=== PATIENT | female | born 1975 | race Caucasian/White ===

== ENCOUNTER 2018-09-20 15:47 | Observation (INO) ==
[2018-09-20] MEDS ORDERED: Naloxone 0.4 MG/ML INJ IVP PRN (17:39)
[2018-09-20] MEDS ORDERED: Ondansetron 4 MG/2 ML VIAL IVP PRN (17:39)
--- NOTE | 2018-09-20 18:01 | Internal Med History&Physical ---
Date of Encounter: 09/20/18 Time of Encounter: 17:40 Internal Medicine - H&P: HPI Chief complaint: Symptomatica bradycardia Admitted From: Hospital to Hospital Transfer History of present illness: Ms. Pearce is a 42 year old female with no significant past medical history was transferred from [facility] ED due to the concern of symptomatic bradycardia. Patient reports that she was on her way to [place] to pay her bills and was in a car with her friend being a logging truck driver. She then had a sudden onset of blurring of vision and nausea to the point where he had to pulling machine operator to a gas station and let her vomit. She did not really vomit anything but subsequently lost consciousness. No fall or head injury. Her friend shook her to wake her up and she regained consciousness after 5-10 secs. However, she appeared to be confused and was brought to the ED subsequently. She was also noted to be flushed and profoundly diaphoretic. It is reported that it took about 30-45mins before she became herself again. No tongue biting, up rolling of the eyes, or loss of bowel/bladder function noted. She does not recall any episodes after the vomiting and currently denies any chest pain, shortness of breath, cough, sputum production, fever/chills, abdominal pain, diarrhea, or dysuria. At the outside hospital ED, she was afebrile and was noted to have heart rate of 40s. BP Stable. 1 dose of atropine was given which brought her heart rate back upto 60s. Workup was largely unremarkable with normal hemoglobin, white blood cell count, troponin, and BMP. EKG showed sinus bradycardia without STT changes concerning for ischemia. CT head was negative for acute intracranial abnormality. Urine tox screen was only positive for cannabinoids. She was given IV fluid and transferred to [facility] with cardiology consultation. Past Med Surg Social Fam HX - Past Medical History Attestation: Yes The following information was validated with the patient. Medical history: no medical history Additional medical history: back pain, current smoker Psychiatric history: no psych history - Past Surgical History Surgical History: no surgical history - Social History Smoking Status: Current every day smoker Packs per day: 1 Smokeless Tobacco Status: No Alcohol use: none Drug use: marijuana - Family History Mother Living Status: Still Living Father Living Status: Still Living Hx Family Cardiac Disorders: Yes (HTN, stroke) Grandmother Hx Family Cancer: Yes Internal Medicine - H&P: Meds Allergy/AdvReac Type Severity Reaction Status Date / Time No Known Allergies Allergy Verified 09/20/18 17:27 All Systems PM: A 10-system review of systems was performed and is negative for pertinent findings except as documented above in the HPI. - Constitutional Vitals: Temp Pulse Resp BP Pulse Ox 98.1 F 51 15 107/61 97 09/20/18 17:19 09/20/18 17:19 09/20/18 17:19 09/20/18 17:19 09/20/18 17:19 Exam: General: Alert and oriented, not in acute distress. HEENT:EOMI, pupils equal, round and reactive. Cardiovascular:Normal S1 & S2, No JVD. Pulse regular, rate ~ 50. No murmur or carotid bruit Lungs: clear to auscultation, no wheezes/rales Abdomen:Soft, non-tender, no rigidity. Extremities:No deformity or swelling Neurological: CN II-XII intact, power and sensation fully intact in all 4 limbs. No cerebellar signs, pronator drift -ve, Babinski downgoing bilaterally Skin:Normal color, no rash, no lesions. Pulses:Carotid and radial pulses normal +2. Rest of the physical exam is non contributory - Assessment and Plan (1) Bradycardia Current Visit: Yes Status: Acute Assessment and plan: Her episode appears to be consistent with vasovagal syncope but HR was noted to be persistently low despite pt returning to her baseline initial workup -ve including troponin and EKG trend troponin to rule out ACS Telemetry Check TSH repeat EKG tomorrow morning Echocardiogram to rule out structural heart disease cardiology consult called from [facility] ED (2) Tobacco abuse Current Visit: Yes Status: Chronic Assessment and plan: Smoking cessation advised (3) DVT prophylaxis Current Visit: Yes Status: Acute Assessment and plan: pt ambulatory - Time Spent With Patient Total time spent is greater than 50% in coordination of care (as documented) at patient's floor/unit and/or counseling patient: 25 - 35 minutes
[2018-09-20] MEDS ORDERED: *HR* Atropine Sulfate 1 MG/10 ML SYRINGE IVP PRN (18:14)
[2018-09-20] MEDS: Nicotine 14 MG PATCH.TD24 TD SCH (18:55)
[2018-09-20 21:29] LABS: Basophils # 0.1 K/mcL (0.0-0.2); Basophils % 0.6 %; Eosinophils # 0.1 K/mcL (0.0-0.6); Eosinophils % 1.1 %; Hematocrit 41.4 % (35.3-44.9); Immature Granulocytes % 0.3 % (0-4); Lymphocytes # 2.8 K/mcL (0.6-4.6); Lymphocytes % 26.9 %; Mean Corpuscular HGB Conc 33.8 g/dL (31.6-35.5); Mean Corpuscular Volume 88.8 fL (83.0-100.0); Monocytes # 0.8 K/mcL (0.0-1.3); Monocytes % 7.8 %; Neutrophils # 6.5 K/mcL (1.6-8.9); Platelet Count 178 K/mcL (140-400); Red Blood Count 4.66 M/mcL (3.82-4.97); Red Cell Distribution Width 13.2 % (11.5-14.5); Segmented Neutrophils % 63.3 %
[2018-09-20 21:49] LABS: BUN/Creatinine Ratio 11 (6-26); Blood Urea Nitrogen 8 mg/dL (6-20); Calcium 8.6 mg/dL (8.6-10.3); Carbon Dioxide 22 mEq/L (23-29); Chloride 111 mEq/L (98-107); Glucose 96 mg/dL (70-105); Osmolality,Calculated 290 (280-300); Potassium 3.8 mEq/L (3.5-5.1); Sodium 141 mEq/L (136-145); eGFR For Non-African Americans > 60 (> 60)
[2018-09-20 21:50] LABS: Troponin I < 0.03 ng/mL (< 0.04)
[2018-09-20 22:04] LABS: Thyroid Stimulating Hormone 4.378 mcIU/mL (0.340-5.600)
[2018-09-21] MEDS: Nicotine 14 MG PATCH.TD24 TD SCH (09:38)
[2018-09-21 11:05] VITALS: BP 96/62
--- NOTE | 2018-09-21 11:57 | Cardiology Consult Note ---
<Jason Perez R - Last Filed: 09/21/18 12:39> Date of Encounter: 09/21/18 Time of Encounter: 11:50 Assessment and Plan (1) Bradycardia Status: Acute Per Cardiology: ECGs reviewed during hospital stay with heart rates in the 50s, sinus bradycardia/sinus arrhythmia. ECG from outside facility showed sinus rhythm in the 80s. Medical records reviewed with documented heart rate of 44 at one point. Hr now 60's-70's. Avg hr on tele 61 past 12 hrs, lowest hr 58. Patient appears to have had vasovagal event. No head CT results noted. Consider neurology evaluation. Troponin negative 1. TSH and lytes stable. Echo pending, further recommendations after echocardiogram. Assuming no significant findings recommend two-week event monitor and follow-up with cardiology in outpatient setting. Cardiology signoff, reconsult as needed, follow-up arranged. Will discuss and review with Dr. Cook. Discussion w patient/family: The assessment and plan as outlined above was discussed with the patient and/or family members who expressed understanding and agreement. All questions were answered. Thank you for involving us in the care of your patient. Please call with any questions. History of Present Illness Consult date: 09/21/18 Consult reason: Bradycardia Chief complaint: Vomiting History of present illness: Ms. Pearce is a 42 year old female with a relevant past medical history of nicotine abuse. Cardiology consults for concerns of possible symptomatic bradycardia. Patient seen with family at bedside. Reports was riding as a passenger in a car to pay bills and developed onset of blurry vision bilaterally with difficulty making out shapes. She reports eventually felt nauseous and car was pulled over and she vomited. She reports expressing diaphoresis and confusion. She denies any awareness to loss of consciousness or seizure-like activity. Patient reports taken to the ER for further evaluation. She reports prior to this event has not experience any of these symptoms before. Asymptomatic during hospital stay. She denied any precipitating events other than outlined above. Denies any change in routine or recreational drug use. Past Med Surg Social Fam HX - Past Medical History Attestation: Yes The following information was validated with the patient. Source: patient, old records reviewed Medical history: no medical history Additional medical history: back pain, current smoker Psychiatric history: no psych history - Past Surgical History Surgical History: no surgical history - Social History Smoking Status: Current every day smoker Packs per day: 1 Smokeless Tobacco Status: No Alcohol use: none Drug use: marijuana - Family History Mother Living Status: Still Living Father Living Status: Still Living Hx Family Cardiac Disorders: Yes (HTN, stroke) Grandmother Hx Family Cancer: Yes Medications and Allergies Allergy/AdvReac Type Severity Reaction Status Date / Time No Known Allergies Allergy Verified 09/20/18 17:27 All Systems Review: The remainder of the systems were reviewed and are negative - Constitutional Constitutional: weakness - Cardiovascular Cardiovascular: as per HPI, diaphoresis - Gastrointestinal Gastrointestinal: nausea, other (Vomiting) Physical Examination Vital Signs, Last 4 Hours Temp Pulse Resp BP Pulse Ox 09/21/18 11:04 98.1 F 67 16 96/62 96 09/21/18 08:09 98.6 F 76 16 110/64 96 General: Conversant, No Apparent Distress HEENT: Atraumatic, Normocephaly, Mucus Membranes Moist Neck: No JVD, Normal carotid pulses Cardiac: Reg Rate and Rhythm, Normal S1 and S2, No Murmur Lungs: Normal Breath Sounds, No Wheeze, Rales, Rhonchi Neuro: Alert and responsive, No focal deficits noted Abdomen: Soft, Non-Tender Skin: No rashes noted on visualized skin Musculoskeletal: No Chest Wall Tenderness Extremities: No Clubbing, No Cyanosis, No Edema, Normal Pulses Results 09/20/18 19:33 09/20/18 19:33 Lab Results Laboratory Tests 09/20/18 09/20/18 09/20/18 19:33 19:33 19:33 Hgb 14.0 Hct 41.4 Creatinine 0.73 Est GFR (Non-Af Amer) > 60 Magnesium 2.0 Troponin I < 0.03 TSH 4.378 Active Medications Atropine Sulfate (Atropine) 1 mg IVP ONCE PRN PRN Reason: Bradycardia Stop: 03/22/19 18:15 Naloxone HCl (Narcan) 0.4 mg IVP Q2M PRN PRN Reason: SEE COMMENTS Stop: 03/22/19 17:40 Nicotine (Nicoderm) 14 mg TD DAILY [facility]; Protocol Stop: 03/22/19 19:01 Last Admin: 09/21/18 09:38 Dose: 14 mg Ondansetron HCl (Zofran) 4 mg IVP Q8HR PRN PRN Reason: Nausea And Vomiting Stop: 03/22/19 17:40 - Imaging and Cardiology Echo: pending - EKG Interpretation EKG results cardiology: personally reviewed (Sinus bradycardia in the 50s), normal ECG, no diagnostic ischemia, other Consult Discharge Plan - Plan Instructions: Nicotine (Absorbed through the skin), How to Stop Smoking (DC), Cigarette Smoking and Your Health (GEN), Bradycardia (DC), Bradycardia (GEN), Cigarette Smoking and Your Health, Furniture Cleaner (GEN), How to Stop Smoking, Furniture Cleaner (GEN) Additional Instructions: 2 week event monitor and follow with Cardiology as outpatient MR brain as outpatient and establish care with PCP Referrals: NONE,PCP [Primary Care Provider] - Prescriptions: Nicotine Patch [Nicoderm] 14 mg TD DAILY #14 patch.td24 <Giacomo Cook A - Last Filed: 09/21/18 17:10> Date of Encounter: 09/21/18 - Attending Attestation I have personally performed a face to face evaluation on this patient. I have reviewed and agree with the documented findings and care plan as documented by the TRAFFIC ROUTING ENGINEER. History and Exam by me shows: 42-year-old female, current everyday smoker, and family history of CVA admitted for bradycardia in the setting of sudden onset blurry vision associated with nausea and diaphoresis. CT of the head was reportedly negative. AAOX3 in NAD at the bedside Hemodynamically stable Cardiopulmonary exam revealed S1, S2, no murmur; clear lungs Rhythm reviewed - sinus bradycardia Echo preserved EF, mild eccentric aortic regurgitation. Impression/plan: 1 ) Vasovagal episode. I agree with event monitor 2) Tobacco dependence. Urged to quit smoking 3) Aortic regurgitation patient needs to be followed as outpatient Giacomo Vasquez MD [facility] Assessment and Plan Discussion w patient/family: The assessment and plan as outlined above was discussed with the patient and/or family members who expressed understanding and agreement. All questions were a nswered. Thank you for involving us in the care of your patient. Please call with any questions. History of Present Illness History of present illness: Ms. Pearce is a 42 year old female All Systems Review: The remainder of the systems were reviewed and are negative Results 09/20/18 19:33 09/20/18 19:33 Lab Results 09/20/18 09/20/18 09/20/18 19:33 19:33 19:33 WBC 10.3 Hgb 14.0 Hct 41.4 Plt Count 178 Sodium 141 Potassium 3.8 Chloride 111 H Carbon Dioxide 22 L BUN 8 Creatinine 0.73 Glucose 96 Calcium 8.6 Magnesium 2.0 Troponin I < 0.03 TSH 4.378
--- NOTE | 2018-09-21 13:58 | Discharge Summary ---
- NOTES TO OUTPATIENT PROVIDER Notes to Outpatient Provider: Patient was admitted for what appears to be vasovagal syncope. She had profound bradycardia following the episode and was transferred to the outside hospital ER where she received a dose of atropine. She was monitored overnight without further recurrence of bradycardia nor syncopal episodes. Echocardiogram was performed inpatient, report pending at the time of discharge which will be called in tomorrow. Due the possibility of amaurosis fugax, MR brain was offered but declined. She will be discharged on 2 week event monitor and also advised her to obtain MR head as outpatient at least then. Orders not resulted at time of discharge: Pending orders 09/20/18 17:40 EKG [ECG 12 lead ECG] [ECG] Stat 09/20/18 17:56 EV echocardiogram Routine 09/21/18 06:00 EKG [ECG 12 lead ECG] [ECG] AM 0600 09/21/18 12:33 ECG event monitor 2 weeks [ECG] Routine Date of Encounter: 09/21/18 Time of Encounter: 12:00 - Discharge Diagnosis (1) Bradycardia Priority: Primary Status: Acute (2) Tobacco abuse Priority: Secondary Status: Chronic (3) DVT prophylaxis Priority: Secondary Status: Acute Hospital course: Ms. Pearce is a 42 year old female with history of tobacco abuse was admitted for what appears to be vasovagal syncope. She had profound bradycardia following the episode and was transferred to the outside hospital ER where she received a dose of atropine. She was monitored overnight without further recurrence of bradycardia nor syncopal episodes. Echocardiogram was performed inpatient, report pending at the time of discharge which will be called in tomorrow. Due the possibility of amaurosis fugax, brain was offered but declined. She will be discharged on 2 week event monitor and also advised her to obtain MR head as outpatient at least then. Discharge discussed with: patient, nurse, senior billing consultant - Time Spent with Patient Total time spent providing and/or coordinating discharge services: 28 mins - Discharge Medications Prescriptions: New Nicotine Patch [Nicoderm] 14 mg TD DAILY #14 patch.td24 Home Medications: Nicotine Patch [Nicoderm] 14 mg TD DAILY #14 patch.td24 09/21/18 [Rx] Allergies/Adverse Reactions: Allergy/AdvReac Type Severity Reaction Status Date / Time No Known Allergies Allergy Verified 09/20/18 17:27 Date of admission: 09/20/18 16:55 Primary care physician: PCP NONE Consults: 09/20/18 17:40 Consult to Cardiology [CONS] Routine Comment: Consulting Provider: Cardiology Mable Reason for Consult: symptomatic bradycardia Call Completed: Yes - Constitutional Vitals: Temp Pulse Resp BP Pulse Ox 98.1 F 67 16 96/62 96 09/21/18 11:04 09/21/18 11:04 09/21/18 11:04 09/21/18 11:04 09/21/18 11:04 Exam: General: Alert and oriented, not in acute distress. HEENT:EOMI, pupils equal, round and reactive. Cardiovascular:Normal S1 & S2, No JVD. Pulse regular, rate ~ 50. No murmur or carotid bruit Lungs: clear to auscultation, no wheezes/rales Abdomen:Soft, non-tender, no rigidity. Neurological: CN II-XII intact, power and sensation fully intact in all 4 limbs. Full visual reyes. No cerebellar signs, pronator drift -ve, Babinski downgoing bilaterally - Patient Status Disposition: Home, Self-Care Condition: Fair Functional capacity at discharge: independent ambulation Overall status at discharge: patient is back to baseline - Discharge Instructions Follow Up With: NONE,PCP [Primary Care Provider] - Additional Instructions: 2 week event monitor and follow with Cardiology as outpatient MR brain as outpatient and establish care with PCP - Diet and Activity Activity: resume usual activities as tolerated Diet: regular diet
--- NOTE | 2018-09-26 07:34 | Electrocardiograph Report ---
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
--- NOTE | 2018-09-26 07:47 | Electrocardiograph Report ---
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
== END 2018-09-21 15:46 | disposition home or self-care (01) ==
LOC: 3BNU → SUATTDRO 16:55
PROVIDERS: ADMIT Internal Medicine; ATTEND Internal Medicine

== ENCOUNTER 2021-08-02 10:49 | Observation (INO) ==
[2021-08-02] MEDS ORDERED: Ipratropium/Albuterol Neb 3 ML IH ONE (11:23)
[2021-08-02] MEDS ORDERED: 0.9 % Sodium Chloride 1,000 ML IV ONE (11:24)
[2021-08-02] MEDS ORDERED: methylPREDNISolone 125 MG/2 ML VIAL IVP ONE (11:27)
[2021-08-02 11:34] LABS: Basophils # 0.1 K/mcL (0.0-0.2); Eosinophils # 0.2 K/mcL (0.0-0.6); Eosinophils % 3.2 %; Hematocrit 50.6 % (35.3-44.9); Hemoglobin 16.6 g/dL (11.5-15.4); Immature Granulocytes % 0.1 % (0-4); Lymphocytes # 1.9 K/mcL (0.6-4.6); Lymphocytes % 26.2 %; Mean Corpuscular HGB Conc 32.8 g/dL (31.6-35.5); Mean Corpuscular Hemoglobin 30.2 pg (28.0-33.3); Mean Platelet Volume 11.8 fL (9.4-12.4); Monocytes # 0.5 K/mcL (0.0-1.3); Monocytes % 7.4 %; Neutrophils # 4.5 K/mcL (1.6-8.9); Platelet Count 223 K/mcL (140-400); Red Cell Distribution Width 13.2 % (11.5-14.5); Segmented Neutrophils % 62.1 %; White Blood Count 7.3 K/mcL (4.3-11.1)
[2021-08-02 11:57] LABS: BUN/Creatinine Ratio 12 (6-26); Blood Urea Nitrogen 9 mg/dL (6-20); Calcium 9.7 mg/dL (8.6-10.3); Carbon Dioxide 30 mEq/L (23-29); Chloride 106 mEq/L (98-107); Glucose 89 mg/dL (70-105); Osmolality,Calculated 290 (280-300); Potassium 4.1 mEq/L (3.5-5.1); Sodium 141 mEq/L (136-145); eGFR For African Americans > 60 (> 60); eGFR For Non-African Americans > 60 (> 60)
[2021-08-02 11:58] LABS: Troponin I < 0.03 ng/mL (< 0.04)
[2021-08-02] MEDS ORDERED: Naloxone 0.4 MG/ML INJ IVP PRN (13:16)
[2021-08-02] MEDS ORDERED: Perflutren Lipid Microsphere 1.3 ML in 0.9 % Sodium Chloride 8.7 ML IVP PRN ×2 (13:21→15:01)
[2021-08-02] MEDS: 0.9 % Sodium Chloride 1,000 ML IVC SCH ×2 (13:35→19:20)
[2021-08-02] MEDS: Ondansetron 4 MG/2 ML VIAL IVP PRN (13:35)
[2021-08-02 13:58] LABS: Thyroid Stimulating Hormone 2.751 mcIU/mL (0.340-5.600)
[2021-08-02] MEDS: Aspirin 81 MG TAB.CHEW PO SCH (15:33)
[2021-08-02] MEDS ORDERED: Nicotine 21 MG PATCH.TD24 TD ONE (16:27)
[2021-08-02] MEDS: *HR* Heparin 5,000 UNIT/ML VIAL SQ SCH (17:14)
[2021-08-03] MEDS: *HR* Heparin 5,000 UNIT/ML VIAL SQ SCH ×2 (05:05→15:53)
[2021-08-03] MEDS ORDERED: Acetaminophen 325 MG TABLET PO ONE (06:32)
[2021-08-03] MEDS: Ondansetron 4 MG/2 ML VIAL IVP PRN (06:52)
[2021-08-03] MEDS: Aspirin 81 MG TAB.CHEW PO SCH (07:30)
[2021-08-03] MEDS ORDERED: Ketorolac 30 MG/ML VIAL IVP ONE (07:32)
[2021-08-03] MEDS ORDERED: Metoclopramide 10 MG/2 ML VIAL IVP ONE (07:32)
[2021-08-03 07:48] VITALS: O2SAT 96
[2021-08-03] MEDS: 0.9 % Sodium Chloride 1,000 ML IVC SCH (07:48)
[2021-08-03] MEDS ORDERED: Regadenoson 0.4 MG/5 ML SYRINGE IVP ONE (08:45)
[2021-08-03 11:07] LABS: Basophils % 0.2 %; Hematocrit 42.1 % (35.3-44.9); Immature Granulocytes % 0.4 % (0-4); Lymphocytes # 1.5 K/mcL (0.6-4.6); Lymphocytes % 8.3 %; Mean Corpuscular HGB Conc 34.2 g/dL (31.6-35.5); Mean Corpuscular Hemoglobin 31.2 pg (28.0-33.3); Mean Corpuscular Volume 91.1 fL (83.0-100.0); Mean Platelet Volume 11.5 fL (9.4-12.4); Monocytes # 1.5 K/mcL (0.0-1.3); Monocytes % 8.3 %; Neutrophils # 15.2 K/mcL (1.6-8.9); Platelet Count 227 K/mcL (140-400); Red Blood Count 4.62 M/mcL (3.82-4.97); Red Cell Distribution Width 13.1 % (11.5-14.5); Segmented Neutrophils % 82.8 %
[2021-08-03 11:11] LABS: Hemoglobin 14.4 g/dL (11.5-15.4); White Blood Count 18.4 K/mcL (4.3-11.1)
[2021-08-03 11:45] LABS: BUN/Creatinine Ratio 13 (6-26); Blood Urea Nitrogen 10 mg/dL (6-20); Calcium 8.2 mg/dL (8.6-10.3); Carbon Dioxide 25 mEq/L (23-29); Chloride 109 mEq/L (98-107); Glucose 105 mg/dL (70-105); Magnesium 2.1 mg/dL (1.6-2.6); Osmolality,Calculated 293 (280-300); Phosphorous 2.4 mg/dL (2.7-4.5); Potassium 3.5 mEq/L (3.5-5.1); Sodium 142 mEq/L (136-145); Troponin I < 0.03 ng/mL (< 0.04); eGFR For African Americans > 60 (> 60); eGFR For Non-African Americans > 60 (> 60)
[2021-08-03 14:27] VITALS: BP 105/65; PULSE 57; TEMP 97.6
== END 2021-08-03 17:52 | disposition home or self-care (01) ==
LOC: EMEROOARM 10:49 → 3BNU 10:49
PROVIDERS: ADMIT Student in an Organized Health Care Education/Training Program; ATTEND Student in an Organized Health Care Education/Training Program